=== PATIENT | male | born 1940 | race Caucasian/White ===

== ENCOUNTER → 2016-10-16 | Outpatient (CLI) | payer OTHER, MEDICARE ==
[~2016-10-16] MED LIST: ACTOS 45 MG45 MG PO; ACUVAIL 0.45%1 EACH OPHTHALMIC; AMIODARONE PO; ASPIRIN EC81 M1 PO; B12INJ IM; FERREX-150 PLU150 MG PO; FERROUS GLUCON325 M4 PO; GLUCOPHAGE1000 MG PO; JANUVIA100 MG PO; LIPITOR20 MG PO; LISINOPRIL PO; LISINOPRIL20 MG PO; LISINOPRIL30 MG PO; MEDROLDOSEPACK; MINIPRIN81 MG PO; MULTIVITAMINS PO; NITROGLYCERIN0.4 MG SL; PERCOCET 5-3251 EACH PO; PHISOHEX148 ML; PLAVIX 75 MG TA75 MG PO; PRED FORTE 1% EY5 M1 OPHTHALMIC; PRILOSEC 20 MG20 MG PO; PRILOSEC40 MG PO; PROTONIX40 M2 OR; TOPROL XL25 MG PO; UNICOMPLEX M TA1 TA1 PO; VICTOZA0.6 MG/0.1 INJECTION; WELCHOL 625 MG625 MG PO
--- NOTE | ~2016-10-16 | CARDNUC ---
[facility] [place] [address] CARDIAC NUCLEAR IMAGING REPORT Name: WALLY LAFLEUR [facility] #: [id number] Admission: 10/16/16 Attend Phys: Horace Rivear MD Discharge: Date of : 38 Date of Service: 10/16/16 1245 Report #: [id number] THIS REPORT FOR: //name// CC: Horace Humphrey DATE OF SERVICE: 10/16/2016 Myocardial perfusion imaging study using regadenoson. PRIMARY CARE PHYSICIAN: Andrew Humphrey MD. GENDER: Male. INDICATION: Dyspnea. CORONARY HISTORY: CAD/CABG/GA. CARDIOVASCULAR RISK FACTORS: Age, hypertension, hyperlipidemia, and diabetes mellitus. CARDIAC MEDICATIONS: BETHANIE inhibitor and atorvastatin. TYPE OF STUDY: The patient underwent a SPECT study. STRESS PROTOCOL: A total of 0.4 mg of regadenoson was injected intravenously, followed by Cardiolite. The patient did not ambulate during the procedure. HEMODYNAMIC DATA: The resting heart rate was 69 beats per minute, with a blood pressure of 170/60 mmHg. Following regadenoson, the heart rate increased to 85 beats per minute, and systolic blood pressure decreased to 127 mmHg. The patient had symptoms consistent with regadenoson, but no chest discomfort. ELECTROCARDIOGRAM: The resting electrocardiogram revealed sinus rhythm, nonspecific ST segment abnormalities. Following regadenoson, there were no significant arrhythmias or ST segment changes. PERFUSION IMAGING: Myocardial perfusion imaging was performed using Cardiolite, 11.8 mCi for the resting images and 35.3 mCi for the stress images. This was a same-day rest-stress imaging protocol. Gated SPECT images were obtained. Comparison of the post-pharmacologic stress and rest images reveal homogeneous uptake of isotope within all myocardial segments. The gated portion of the study revealed normal global and segmental LV systolic function, ejection fraction of 66%. IMPRESSION: 1. Clinical response, nondiagnostic. 2. Stress ECG response, nonischemic. 3. Myocardial perfusion imaging, nonischemic. 4. Ventricular function, normal. [facility] [place] [address] CARDIAC NUCLEAR IMAGING REPORT Name: WALLY LAFLEUR Room #: REG [facility]#: [id number] Admission: 10/16/16 Attend Phys: Horace Rivera MD Discharge: Date of : 38 Date of Service: 10/16/16 1245 Report #: [id number] CONCLUSION: This study is of low probability for inducible ischemia or prior infarct. There is normal global and segmental LV systolic function. <ELECTRONICALLY SIGNED> By: Horace Rivera MD 10/17/16 0842 1245 1453 Horace Rivera MD /nt
== END ==
LOC: NUC 07:51
DX: I25.10 Atherosclerotic heart disease of native coronary artery without angina pectoris (principal)

== ENCOUNTER → 2017-12-10 | Outpatient (CLI) | payer OTHER, MEDICARE ==
--- NOTE | ~2017-12-10 | 2DMMODE ---
[facility] [place] [address] 2 D/M-MODE ECHOCARDIOGRAM Name: WALLY LAFLEUR Room #: REG [facility]#: [id number] Admission: 12/10/17 Attend Phys: Horace Rivera MD Discharge: Date of : 38 Date of Service: 12/10/17 1218 Report #: [id number] THIS REPORT FOR: //name// APPROVED REPORT Study performed: 12/10/2017 11:02:39 EXAM: Comprehensive 2D, Doppler, and color-flow Echocardiogram Patient Location: Out-Patient Status: routine BSA: 1.59 HR: 714 bpm BP: 165/65 mmHg Rhythm: NSR Other Information Study Quality: Good Indications CAD Hx: CABG x4, DM, HLD 2D Dimensions RVDd: 35.77 mm LVEF(%): 58.03 (>50%) IVSd: 9.88 (7-11mm) LVOT Diam: 21.26 (18-24mm) LVDd: 39.12 mm PWd: 10.53 (7-11mm) Ascending Ao: 32.90 (22-36mm) LVDs: 27.34 (25-40mm) Aortic Root: 34.52 mm Kuo's LVEF: 58.03 % Volumes Left Atrial Volume (Systole) Single Plane 4CH: 38.29 mL Single Plane 2CH: 47.44 mL LA ESV Index: 30.00 mL/m2 Aortic Valve AoV Peak Rob.: 4.07 m/s AO Peak Gr.: 66.35 mmHg LVOT Max P.86 mmHg AO Mean Gr.: 36.66 mmHg AO V2 Mean: 2.89 m/s LVOT Max V: 1.10 m/s AO V2 VTI: 91.84 cm NICKI Vmax: 0.96 cm2 AI Vmax: 4.36 m/s [facility] [place] [address] 2 D/M-MODE ECHOCARDIOGRAM Name: WALLY LAFLEUR Room #: REG [facility]#: [id number] Admission: 12/10/17 Attend Phys: Horace Rivera MD Discharge: Date of : 38 Date of Service: 12/10/17 1218 Report #: [id number] AI Sargent: 2.67 m/s2 AI PHT: 473.47 ms Mitral Valve E/A Ratio: 0.7 MV Decel. Time: 317.45 ms MV E Max Rob.: 0.87 m/s MV A Rob.: 1.32 m/s MV PHT: 92.06 ms Pulmonary Valve PV Peak Rob.: 1.04 m/s PV Peak Gr.: 4.35 mmHg Pulmonary Vein P Vein S: 0.88 m/s P Vein A: 0.40 m/s P Vein D: 0.45 m/s P Vein A Dur.: 143.0 msec P Vein S/D Ratio: 1.96 Tricuspid Valve TR Peak Rob.: 2.30 m/s RAP Estimate: 5.00 mmHg TR Peak Gr.: 21.15 mmHg PA Pressure: 26.00 mmHg Left Ventricle The left ventricle is normal size. Hypokinesis of basal inferior wall. There is normal left ventricular wall thickness. The left ventricular systolic function is normal. LVEF is 55%. Grade I - abnormal relaxation pattern. Right Ventricle The right ventricle is normal size. The right ventricular systolic function is normal. Atria The left atrium size is normal. The right atrium size is normal. Aortic Valve Aortic valve is thickened and heavily calcified. Mild to moderate aortic regurgitation. There is moderate to severe valvular aortic stenosis. Calculated aortic valve area is 1.0 cm2 with maximum pressure gradient of 66 mmHg and mean pressure gradient of 37 mmHg. Mitral Valve Mild mitral annular calcification. The mitral valve is mildly [facility] [address] [place] [address] 2 D/M-MODE ECHOCARDIOGRAM Name: WALLY LAFLEUR Room #: REG [facility]#: [id number] Admission: 12/10/17 Attend Phys: Horace Rivera MD Discharge: Date of : 38 Date of Service: 12/10/17 1218 Report #: [id number] thickened. Trace mitral regurgitation. No evidence of mitral valve stenosis. Tricuspid Valve The tricuspid valve is normal in structure. Trace to mild tricuspid regurgitation. Estimated PAP 26 mmHg. Pulmonic Valve The pulmonary valve is normal in structure. Trace pulmonic regurgitation. Great Vessels The aortic root is normal in size. The ascending aorta is normal in size. IVC is normal in size and collapses >50% with inspiration. <Conclusion> The left ventricle is normal size. The left ventricular systolic function is normal. Grade I - abnormal relaxation pattern. The right ventricle is normal size. The left atrium size is normal. There is moderate to severe valvular aortic stenosis. Calculated aortic valve area is 1.0 cm2 with maximum pressure gradient of 66 mmHg and mean pressure gradient of 37 mmHg. Mild to moderate aortic regurgitation. Mild mitral annular calcification. The mitral valve is mildly thickened. Trace mitral regurgitation. <ELECTRONICALLY SIGNED> By: Horace Rivera MD 12/10/178 17 17 Horace Rivera MD /INF
== END ==
LOC: CV 11-26 09:58
DX: I25.10 Atherosclerotic heart disease of native coronary artery without angina pectoris (principal); I35.1 Nonrheumatic aortic (valve) insufficiency; I35.0 Nonrheumatic aortic (valve) stenosis; E11.9 Type 2 diabetes mellitus without complications; E78.5 Hyperlipidemia, unspecified

== ENCOUNTER → 2019-08-04 | Outpatient (CLI) | payer OTHER, MEDICARE ==
--- NOTE | 2019-08-04 11:15 | 2DMMODE ---
[facility] [address] [place] [address] 2 D/M-MODE ECHOCARDIOGRAM Name: CARMELAWALLY YUN Room #: REG [facility]#: [id number] Admission: 08/04/19 Attend Phys: Horace Rivera MD Discharge: Date of : 38 Report #: [id number] THIS REPORT FOR: //name// APPROVED REPORT Study performed: 08/04/2019 10:16:49 EXAM: Comprehensive 2D, Doppler, and color-flow Echocardiogram Patient Location: Bedside BSA: 1.59 HR: 66 bpm BP: 140/58 mmHg Other Information Study Quality: Adequate Indications Diabetes CAD HLD 2D Dimensions RVDd: 28.47 mm IVSd: 11.90 (7-11mm) LVOT Diam: 19.48 (18-24mm) LVDd: 40.19 mm PWd: 10.90 (7-11mm) Ascending Ao: 31.87 (22-36mm) LVDs: 26.62 (25-40mm) Aortic Root: 36.78 mm IVC: 13.00 mm Volumes Left Atrial Volume (Systole) Single Plane 4CH: 43.81 mL Single Plane 2CH: 49.77 mL LA ESV Index: 33.00 mL/m2 Aortic Valve AoV Peak Rob.: 4.79 m/s AO Peak Gr.: 91.71 mmHg LVOT Max P.03 mmHg AO Mean Gr.: 51.34 mmHg LVOT Mean P.18 mmHg AO V2 Mean: 3.40 m/s LVOT Max V: 1.00 m/s AO V2 VTI: 117.63 cm LVOT Mean V: 0.70 m/s NICKI (VTI): 0.72 cm2 LVOT V1 VTI: 28.50 cm NICKI Vmax: 0.62 cm2 AI Vmax: 4.35 m/s SV (LVOT): 84.87 mL AI Catron: 3.39 m/s2 [facility] [place] [address] 2 D/M-MODE ECHOCARDIOGRAM Name: WALLY LAFLEUR Room #: REG [facility]#: [id number] Admission: 08/04/19 Attend Phys: Horace Rivera MD Discharge: Date of : 38 Report #: [id number] AI PHT: 371.60 ms Mitral Valve E/A Ratio: 0.8 MV Decel. Time: 351.65 ms MV E Max Rob.: 1.03 m/s MV A Rob.: 1.31 m/s MV PHT: 101.98 ms IVRT: 114.19 ms Pulmonary Valve PV Peak Rob.: 1.00 m/s PV Peak Gr.: 4.01 mmHg Pulmonary Vein P Vein S: 0.66 m/s P Vein A: 0.59 m/s P Vein D: 0.33 m/s P Vein A Dur.: 129.2 msec P Vein S/D Ratio: 2.00 Tricuspid Valve TR Peak Rob.: 2.78 m/s RAP Estimate: 5.00 mmHg TR Peak Gr.: 30.99 mmHg PA Pressure: 36.00 mmHg Left Ventricle The left ventricle is normal size. There is normal left ventricular wall thickness. The left ventricular systolic function is normal. The left ventricular ejection fraction is within the normal range. LVEF is 60-65%. Mild diastolic dysfunction is present (impaired relaxation pattern). Right Ventricle The right ventricle is normal size. The right ventricular systolic function is normal. Atria Left atrium is at the upper limits of normal. The right atrium size is normal. Aortic Valve Aortic valve is calcified. Mild to moderate aortic regurgitation. There is severe valvular aortic stenosis. Calculated aortic valve area is 0.7 cm2 with maximum pressure gradient of 92 mmHg and mean pressure gradient of 51 mmHg. Mitral Valve The mitral valve is normal in structure. Mild mitral regurgitation. [facility] [address] [place] [address] 2 D/M-MODE ECHOCARDIOGRAM Name: WALLY LAFLEUR Room #: REG [facility]#: [id number] Admission: 08/04/19 Attend Phys: Horace Rivera MD Discharge: Date of : 38 Report #: [id number] No evidence of mitral valve stenosis. Tricuspid Valve The tricuspid valve is normal in structure. Mild tricuspid regurgitation. PAP is estimated at 36 mmHg. Pulmonic Valve The pulmonary valve is normal in structure. Trace pulmonic regurgitation. Great Vessels The aortic root is normal in size. IVC is normal in size and collapses >50% with inspiration. Pericardium There is no pericardial effusion. <Conclusion> The left ventricle is normal size. There is normal left ventricular wall thickness. The left ventricular systolic function is normal. Mild diastolic dysfunction is present (impaired relaxation pattern). The right ventricle is normal size. Left atrium is at the upper limits of normal. There is severe valvular aortic stenosis. Mild to moderate aortic regurgitation. Mild mitral regurgitation. Mild tricuspid regurgitation. PAP is estimated at 36 mmHg. <ELECTRONICALLY SIGNED> By: Horace Rivera MD 08/04/19 1115 14 14 Horace Rivera MD /INF
== END ==
LOC: CV 09:43
DX: I08.3 Combined rheumatic disorders of mitral, aortic and tricuspid valves (principal); I25.10 Atherosclerotic heart disease of native coronary artery without angina pectoris; E78.5 Hyperlipidemia, unspecified; E11.9 Type 2 diabetes mellitus without complications

== ENCOUNTER 2020-08-17 09:24 | Emergency (ER) | payer OTHER, MEDICARE ==
[~2020-08-17] VITALS: Ht 162.6 cm; Wt 55.3 kg
[2020-08-17] MEDS ORDERED: PLAVIX 75 MG TA75 MG PO (10:10)
[2020-08-17] MEDS ORDERED: FAMOTIDINE 20 M20 MG PO (10:11)
[2020-08-17] MEDS ORDERED: ZESTRIL40 MG PO (10:11)
[2020-08-17] MEDS ORDERED: VICTOZA0.6 MG/0.1 SUBQ (10:12)
[2020-08-17] MEDS ORDERED: NORVASC5 M1 PO (10:12)
[2020-08-17 10:15] LABS: BASOPHILS 0.5 % (0.0-2.0); EOSINOPHILS 0.9 % (0.0-3.0); HEMATOCRIT 24.4 % (42.0-52.0); HEMOGLOBIN 8.1 gm/dL (14.0-18.0); LYMPHOCYTES 15.3 % (24.0-44.0); MCH 31.2 pg (26.0-34.0); MCHC 33.3 g/dL (28.0-37.0); MCV 93.8 fL (80.0-100.0); MONOCYTES 3.7 % (1.0-8.0); PLATELET COUNT 180 thou/uL (150-400); POLYS 79.6 % (36.0-66.0); RDW 13.8 % (10.5-14.5); WBC 8.8 thou/uL (4.0-11.0)
[2020-08-17 10:29] LABS: APTT 26.3 Seconds (24.5-32.8); INR 1.1; PROTIME 11.2 Seconds (9.3-11.4)
[2020-08-17 10:37] LABS: ALBUMIN 3.5 g/dL (3.4-5.0); CREATININE 2.1 mg/dL (0.7-1.3); POTASSIUM 5.1 mmol/L (3.5-5.1); TOTAL BILIRUBIN 0.2 mg/dL (0.2-1.0); TOTAL PROTEIN 6.5 g/dL (6.4-8.2)
[2020-08-17 10:42] LABS: CALCIUM 8.7 mg/dL (8.5-10.1)
[2020-08-17 15:06] VITALS: BP 124/49
--- NOTE | 2020-08-17 15:58 | EKG ---
[facility] [place] [address] ELECTROCARDIOGRAM REPORT Name: WALLY LAFLEUR Room #: REG M.R.#: [id number] Admission: 08/17/20 Attend Phys: Discharge: Date of : 38 Report #: [id number] THIS REPORT FOR: cc: Andrew Humphrey MD, Steven A. MD Lundgren,Nathaniel Williamson MD FAC ~ THIS REPORT FOR: //name// [facility] ED Test Date: 2020-08-17 Test Time: 13:29:34 Pat Name: WALLY LAFLEUR Department: Room: Gender: Suggestion Clerk: [facility] : 1940 Requested By: Erika Pickens Order Number: [id number] MD: Nathaniel Davenport Measurements Intervals [place] Rate: 78 P: 69 NH: 193 QRS: 43 QRSD: 92 T: 45 QT: 389 QTc: 444 Interpretive Statements Sinus rhythm Atrial premature complex, blocked Nonspecific ST segment abnormality Baseline wander in lead(s) V4 Compared to ECG 09/05/2011 01:15:35 Atrial premature complex(es) now present Electronically Signed On 08-17-2020 15:58:07 [employer] by Nathaniel Davenport [email or web address] <ELECTRONICALLY SIGNED> By: Nathaniel Davenport MD, [facility] 08/17/20 1558 1329 1329 Nathaniel Davenport MD, [facility] /EPI
== END 2020-08-17 15:27 | disposition home or self-care (01) ==
LOC: ER 09:24
PROVIDERS: Emergency Medicine
DX: K92.0 Hematemesis (principal); F17.210 Nicotine dependence, cigarettes, uncomplicated; Z90.89 Acquired absence of other organs; Z79.82 Long term (current) use of aspirin; Z79.01 Long term (current) use of anticoagulants; Z79.899 Other long term (current) drug therapy

== ENCOUNTER 2020-08-22 11:28 | Inpatient (IN) | payer OTHER, MEDICARE ==
[2020-08-22] VITALS (7 sets, daily range): BP systolic 111–149; BP diastolic 36–62
[~2020-08-22] VITALS: Ht 162.6 cm; Wt 57.9 kg
[~2020-08-22 11:28] MED LIST changes: +FAMOTIDINE 20 M20 MG PO; +NORVASC5 M1 PO; +VICTOZA0.6 MG/0.1 SUBQ; +ZESTRIL40 MG PO
[2020-08-22 12:03] LABS: ABSOLUTE NEUTROPHILS 4.5 thou/uL (1.4-8.2); BASOPHILS 0.7 % (0.0-2.0); EOSINOPHILS 2.3 % (0.0-3.0); HEMATOCRIT 22.4 % (42.0-52.0); HEMOGLOBIN 7.4 gm/dL (14.0-18.0); LYMPHOCYTES 19.7 % (24.0-44.0); MCH 31.2 pg (26.0-34.0); MCHC 33.3 g/dL (28.0-37.0); MCV 93.9 fL (80.0-100.0); MONOCYTES 6.5 % (1.0-8.0); PLATELET COUNT 210 thou/uL (150-400); POLYS 70.8 % (36.0-66.0); RBC 2.39 mil/uL (4.50-6.00); RDW 14.5 % (10.5-14.5); WBC 6.4 thou/uL (4.0-11.0)
[2020-08-22 12:15] LABS: CREATININE 1.6 mg/dL (0.7-1.3); POTASSIUM 4.6 mmol/L (3.5-5.1)
[2020-08-22 12:16] LABS: APTT 27.8 Seconds (24.5-32.8); INR 1.1; PROTIME 10.8 Seconds (9.3-11.4)
[2020-08-22 12:21] LABS: TOTAL BILIRUBIN 0.2 mg/dL (0.2-1.0); TOTAL PROTEIN 7.3 g/dL (6.4-8.2)
[2020-08-22 12:38] LABS: CALCIUM 8.9 mg/dL (8.5-10.1)
[2020-08-22 15:58] LABS: URINE BILIRUBIN NEGATIVE (Negative); URINE BLOOD NEGATIVE (Negative); URINE CLARITY CLEAR; URINE COLOR YELLOW; URINE GLUCOSE-RANDOM* NEGATIVE (Negative); URINE KETONES NEGATIVE (Negative); URINE LEUKOCYTES-REFLEX NEGATIVE (Negative); URINE NITRITE-REFLEX NEGATIVE (Negative); URINE PROTEIN (DIPSTICK) NEGATIVE (Negative); URINE UROBILINOGEN 0.2 E.U./dl (0.2-1.0)
[2020-08-22 16:34] LABS: TSH 3.235 uIU/mL (0.358-3.740)
[2020-08-22 17:20] LABS: FOLIC ACID 50.5 ng/mL (8.6-58.9)
--- NOTE | 2020-08-22 19:03 | NUR ---
ASSUMED CARE OF PT AT APPROX 1630 FROM ER D/T BLOODY EMESIS AND BLACK STOOLS. ADMISSION ORDERS, ASSESSMENT AND INSTRUCTIONS COMPLETE. PT A&OX4, NO C/O PAIN. EGD PLANNED FOR THE AM, CONSENT SIGNED. WILL CONTINUE TO MONITOR AND FOLLOW POC.
--- NOTE | 2020-08-23 04:39 | NUR ---
PT SAYS HE RECIVED BLOOD IN THE UNIT AND AFTER THAT REPORTS FEELING MUCH BETTER. REPORTS HAVING BLACK STOOLS. PT HAS SLEPT AND NPO AFTER MN. FOR EGD THIS AM WAS TOLD WILL CHECK CONSENT ON CHART FOR PROCEDURE . LUNGS ARE CLEAR ON ROOM AIR . UP IN ROOM WITH MINIMAL NURSING ASSISTANCE REQUIRED.
[2020-08-23 05:04] VITALS: BP 119/43
[2020-08-23 05:32] LABS: CALCIUM 8.2 mg/dL (8.5-10.1); CREATININE 1.4 mg/dL (0.7-1.3); MAGNESIUM 1.5 mg/dL (1.8-2.4); POTASSIUM 4.7 mmol/L (3.5-5.1)
[2020-08-23 05:45] LABS: ABSOLUTE NEUTROPHILS 4.1 thou/uL (1.4-8.2); BASOPHILS 0.8 % (0.0-2.0); EOSINOPHILS 3.6 % (0.0-3.0); HEMATOCRIT 22.6 % (42.0-52.0); HEMOGLOBIN 7.7 gm/dL (14.0-18.0); LYMPHOCYTES 27.5 % (24.0-44.0); MCH 30.9 pg (26.0-34.0); MCHC 34.1 g/dL (28.0-37.0); MCV 90.6 fL (80.0-100.0); MONOCYTES 8.2 % (1.0-8.0); PLATELET COUNT 172 thou/uL (150-400); POLYS 59.9 % (36.0-66.0); RDW 15.7 % (10.5-14.5); WBC 6.8 thou/uL (4.0-11.0)
[2020-08-23 07:48] VITALS: BP 111/42
[2020-08-23 11:18] VITALS: BP 111/45
[2020-08-23 14:16] VITALS: BP 129/55
--- NOTE | 2020-08-23 14:58 | NUR ---
Chart reviewed and case discussed with the care team. Pt admitted from home for GI bleed. EGD today. The pt lives with his and was indep prior to admission. His pcp is Dr. Andrew Humphrey. He is up with sba in the room. No cm interventions indicated at this time. Will follow along should dc needs arise.
--- NOTE | 2020-08-23 16:02 | NUR ---
PT ALERT AND ORIENTED. HAD EGD THIS AM. VSS. DENIED HAVING PAIN OR DISCOMFORT. NO CONCERNS AT THIS TIME.
[2020-08-23 19:59] VITALS: BP 117/38
--- NOTE | 2020-08-24 03:47 | NUR ---
PT IS ALERT AND ORINETED X4. UP TO BATHROOM WITH MINIMAL ASSISTANCE. LUNGS ARE CLEAR ON ROOM AIR. BRADYCARDIA ON THE MONITOR AT TIMES BUT PT IS SLEEPING. NO COMPLAINTS OF PAIN WILL SEE IF POSSIBLE DISHCARGE TODAY. DR. VIZCAINO SAID OK TO DC HOME IN HIS NOTES. CALL LIGHT WITHIN REACH IF NEEDS ASISSTANCE FROM STAFF.
[2020-08-24 07:42] VITALS: BP 146/38
[2020-08-24 08:54] LABS: HEMATOCRIT 23.7 % (42.0-52.0); HEMOGLOBIN 7.9 gm/dL (14.0-18.0); MCH 30.3 pg (26.0-34.0); MCHC 33.3 g/dL (28.0-37.0); MCV 91.1 fL (80.0-100.0); RBC 2.6 mil/uL (4.50-6.00); RDW 15.6 % (10.5-14.5); WBC 6.5 thou/uL (4.0-11.0)
--- NOTE | 2020-08-24 11:42 | NUR ---
RECEIVED PT'S CARE AROUND 0710; PT. ON BED; RESTING WITH EYES CLOSED; EQUAL CHEST RISING; SR ON THE MONITOR; DURING AM ASSESSMENT PT. AOX4; AM MEDICATIONS GIVEN; EDUCATED ABOUT NEW MEDICATION; ST. UNDERSTANDING; EDUCATED ABOUT FALL PRECAUTIONS; [facility]. UND[facility]; C/O R. AC IV PAIN; IV D/C; PHYSICIAN NOTIFIED [facility] 7.9; D/C ORDERS ON PLACED; PT. NOTIFIED ABOUT D/C PROCESS; [facility]. [facility]; ASSESSMENT CHARGED; FOLLOWING POC; WILL WORK ON D/C ORDERS;
[2020-08-24] MEDS ORDERED: ACETAMINOPHEN325 M1 PO (11:49)
[2020-08-24] MEDS ORDERED: PROTONIX 20 MG20 M1 PO (11:49)
[2020-08-24 11:54] VITALS: BP 146/38
[2020-08-24 12:08] VITALS: BP 146/38
--- NOTE | 2020-08-27 20:06 | PATH ---
[facility] [place] [address] PATHOLOGY RPT PROCEDURE Name: WALLY CHRISTIANSON Room #: 207-P DIS IN M.R.#: [id number] Admission: 08/22/20 Date of : 38 Discharge: 08/24/20 Report #: [id number] Path Case #: [id number] [facility] Accession Number: [id number] . 01 Material submitted: . stomach - RANDOM GASTRIC BIOPSY R/O H. PYLORI . 01 Clinical history: . MELENA, UPPER GI BLEED, SYMPTOMATIC ANEMIA . 02 Diagnosis: "Random gastric BX R/O H. pylori", biopsy: - Gastric mucosa with mild reactive changes and minimal chronic inflammation. - H. pylori immunohistochemical stain negative for microorganisms (block A1); control reacted appropriately. (CLW:pit 08/27/2020) QTP 08/27/2020 1534 Local . 02 Electronically signed: . April Holley MD, Pathologist NPI- [id number] . 01 Gross description: . Received in formalin labeled "Wally Christianson, random gastric BX rule out H. pylori" are multiple lee-brown soft tissue fragments measuring in aggregate 1.3 x 0.5 x 0.1 cm. The specimen is submitted entirely in A1. ([facility]; 08/26/2020) [facility] 08/26/2020 1203 Local . 02 Pathologist provided ICD-10: K29.50 . 02 CPT . 471875, [id number] Specimen Comment: A courtesy copy of this report has been sent to [phone] Specimen Comment: [phone], Specimen Comment: Report sent to ,DR ZHAO / DR GOLDSMITH Performed at: [address], [place] [id number] MD Shorty Jung MD Phone: [phone] Performed at: [address] [id number] MD Concha Vivas MD Phone: [phone]
== END 2020-08-24 12:28 | disposition home or self-care (01) | DRG 378 ==
LOC: ER 11:28 → EROBS 13:59 → 2N 13:59
PROVIDERS: Emergency Medicine; Nurse Practitioner; ADMIT Internal Medicine; ATTEND Internal Medicine
PROC: 30233N1 Transfusion of Nonautologous Red Blood Cells into Peripheral Vein, Percutaneous Approach (ICD-10-PCS; principal; 2020-08-22)
PROC: 0DB88ZX Excision of Small Intestine, Via Natural or Artificial Opening Endoscopic, Diagnostic (ICD-10-PCS; 2020-08-23)
DX: K25.4 Chronic or unspecified gastric ulcer with hemorrhage (principal); N17.9 Acute kidney failure, unspecified; D62 Acute posthemorrhagic anemia; I25.10 Atherosclerotic heart disease of native coronary artery without angina pectoris; I10 Essential (primary) hypertension; E78.5 Hyperlipidemia, unspecified; E11.51 Type 2 diabetes mellitus with diabetic peripheral angiopathy without gangrene; E55.9 Vitamin D deficiency, unspecified; Z20.828 Contact with and (suspected) exposure to other viral communicable diseases; Z95.820 Peripheral vascular angioplasty status with implants and grafts; Z95.5 Presence of coronary angioplasty implant and graft; Z95.1 Presence of aortocoronary bypass graft; Z86.010 Personal history of colon polyps; Z80.0 Family history of malignant neoplasm of digestive organs; Z79.899 Other long term (current) drug therapy
CPT/HCPCS: 10081; 62110; 62900; 70005

== ENCOUNTER → 2020-10-10 | Outpatient (CLI) | payer OTHER, MEDICARE ==
[~2020-10-10] MED LIST changes: +ACETAMINOPHEN325 M1 PO; +IRON159 MG PO; +OMEPRAZOLE40 MG PO; +PROTONIX 20 MG20 M1 PO
== END ==
LOC: LAB 07:54
PROVIDERS: ATTEND Internal Medicine Gastroenterology
DX: Z20.828 Contact with and (suspected) exposure to other viral communicable diseases (principal)

== ENCOUNTER → 2020-10-15 | Outpatient (CLI) | payer OTHER, MEDICARE ==
[~2020-10-15] VITALS: Ht 162.6 cm; Wt 55.3 kg
--- NOTE | 2020-10-22 19:06 | PATH ---
[facility] [address] [place] [address] PATHOLOGY RPT PROCEDURE Name: WALLY CHRISTIANSON Room #: REG VELIA Golden.#: [id number] Admission: 10/15/20 Date of : 38 Discharge: Report #: [id number] Path Case #: [id number] [facility] Accession Number: [id number] . 01 Material submitted: . gastrointestinal site - BIOPSY RANDOM GASTRIC . 01 Clinical history: . RECHECK HEALING ULCERS GASTRITIS R/O H PYLORI . 02 Diagnosis: Gastric mucosa, random gastric, endoscopic biopsy: - Mild chronic gastritis with features of reactive gastropathy. - Negative for intestinal metaplasia or atrophy. - Negative for Helicobacter pylori (properly-controlled immunohistochemical stain performed). . (IUV:mml; 10/22/2020) QLM 10/22/2020 1410 Local . 02 Electronically signed: . Concha Vivas MD, Pathologist NPI- [id number] . 01 Gross description: . Received in formalin labeled "Wally Christianson, biopsy random gastric rule H. pylori" are multiple lee-brown soft tissue fragments measuring in aggregate 0.9 x 0.7 x 0.3 cm. The specimen is submitted entirely in A1. ([facility]; 10/19/2020) GZA/GZA 10/19/2020 1258 Local . 02 Pathologist provided ICD-10: K29.50 . 02 CPT . 202819, [id number] Specimen Comment: A courtesy copy of this report has been sent to [phone] Specimen Comment: Report sent to Performed at: [address], [place] [id number] MD Shorty Jung MD Phone: [phone] Performed at: [address] [id number] [address] [address] PATHOLOGY RPT PROCEDURE Name: WALLY CHRISTIANSON Room #: REG VELIA Quintana#: [id number] Admission: 10/15/20 Date of : 38 Discharge: Report #: [id number] Path Case #: [id number] MD Concha Vivas MD Phone: [phone]
== END | disposition home or self-care (01) ==
LOC: GI 07:50
PROVIDERS: ATTEND Internal Medicine Gastroenterology
DX: K29.50 Unspecified chronic gastritis without bleeding (principal); K31.89 Other diseases of stomach and duodenum; I12.9 Hypertensive chronic kidney disease with stage 1 through stage 4 chronic kidney disease, or unspecified chronic kidney disease; E11.22 Type 2 diabetes mellitus with diabetic chronic kidney disease; N18.30 Chronic kidney disease, stage 3 unspecified; I73.9 Peripheral vascular disease, unspecified; D64.9 Anemia, unspecified; K21.9 Gastro-esophageal reflux disease without esophagitis; I25.2 Old myocardial infarction; Z98.890 Other specified postprocedural states; Z79.899 Other long term (current) drug therapy; Z95.1 Presence of aortocoronary bypass graft; Z90.49 Acquired absence of other specified parts of digestive tract; Z87.19 Personal history of other diseases of the digestive system; Z87.891 Personal history of nicotine dependence; Z98.41 Cataract extraction status, right eye; Z98.42 Cataract extraction status, left eye; Z96.1 Presence of intraocular lens; Z91.041 Radiographic dye allergy status
CPT/HCPCS: 62110; 62900